=== PATIENT | female | born 1990 | race Caucasian/White ===

== ENCOUNTER 2018-09-24 11:03 | Inpatient (IN) | payer OTHER ==
[2018-09-24] MEDS ORDERED: ELECTROLYTE-148 SOLN 1,000 ML IV SCH (19:45)
--- NOTE | 2018-09-24 19:52 | HP ---
Past Medical History - Admission Chief Complaint: Uterine Contractions History of Present Illness: 28yp [id number] @ 39.1wks here with uterine contractions. No VB/LOF. Pos FM Seen earlier today, cervix was only 2-3cm and no roll changer an hour after monitoring. Preg c/b GBS pos. 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: Alzheimer's, CVA, Dementia, Migraine, Multiple Sclerosis, Peripheral Neuropathy, Parkinson's, Seizure, Syncope, TIA, Vertigo, Other Cardiovascular: No: AFIB, Aneurysm, Aortic Insufficiency, Aortic Stenosis, CAD, CHF, Deep Vein Thrombosis, HTN, Hyperlipdemia, CT, Mitral Insufficiency, Mitral Stenosis, Murmur, Pulmonary Hypertension, Other Gastrointestinal: No: Ascites, Cancer, Constipation, Crohn's Disease, Diverticulitis, Diverticulosis, Esophageal Varices, Gastritis, GERD, GI Bleed, Hemorrhoids, Hiatal Hernia, Inflamatory Bowel Disease, Irritable Bowel Disease, Pancreatitis, Peptic Ulcer Disease, Ulcerative Colitis, Other Hepatobiliary: No: Cirrhosis, Cholelithiasis, Cholecystitis, Choledocholithiasis , Hepatitis A, Hepatitis B, Hepatitis C, Other Renal/: No: Renal Failure, Renal Inusuff, BPH, Cancer, Hematuria, Hemodialysis , Neurogenic Bladder, Renal Calculi, UTI, Other ...: 3 ...Para: 2 ...Term: 2 ...LMP: 12/23/17 ... Weeks Gestation by Dates: 39.1 ...EDC by Dates: 09/30/18 ...EDC by Sono: 09/26/18 Psych: No: Addictions, Anxiety, Bipolar, Depression, Panic, Psychosis, Schizophrenia, Other Musculoskeletal: No: Bursitis, Chronic low back pain, Hemiparesis, Hemiplegia, Osteoarthritis, Paraplegia, Other - Past Surgical History Past Surgical History: Yes: None Hx Myomectomy: No Hx Transabdominal Cerclage: No - Smoking History Smoking history: Never smoked Have you smoked in the past 12 months: No - Alcohol/Substance Use Hx Alcohol Use: No History of Substance Use: reports: None - Social History Usual Living Arrangement: Yes: With Spouse ADL: Independent History of Recent Travel: No Home Medications - Allergies Allergies/Adverse Reactions: Allergies Allergy/AdvReac Type Severity Reaction Status Date / Time No Known Allergies Allergy Verified 09/25/18 00:10 - Home Medications Home Medications: Ambulatory Orders Ibuprofen 600 mg PO Q6H PRN #30 tablet 09/24/18 Prenat 115/Iron Fum/Folic/Dss [ 19 Tablet] 1 tab PO DAILY 09/24/18 Physical Exam - Maternity Vital Signs: Vital Signs Temperature 98.0 F 09/24/18 13:30 Pulse Rate 90 09/24/18 13:30 Respiratory Rate 20 09/24/18 13:30 Blood Pressure 126/74 09/24/18 13:30 O2 Sat by Pulse Oximetry (%) Constitutional: Yes: Well Nourished, No Distress, Calm Eyes: Yes: WNL, Conjunctiva Clear, EOM Intact HENT: Yes: WNL, Atraumatic, Normocephalic Neck: Yes: WNL, Supple, Trachea Midline Cardiovascular: Yes: WNL, Regular Rate and Rhythm, Bradycardia Breast(s): Yes: WNL - Abdominal Exam/OB Number of Fetuses: Single Presentation: Vertex Contractions: Yes Regularity: Regular Intensity: Mod/Strong Monitor Mode: External Accelerations: Non-Uniform Decelerations: None - Vaginal Exam/OB Vaginal Bleediing: No Speculum Exam: No Dilatation (cm): 6-7 Effacement (%): 100 Amniotic Membrane Status: Intact Presentation: Vertex/Position - Physical Exam Edema: No Psychiatric: Yes: Agitated Problem List - Problems (1) Uterine contractions Code(s): [id number] - Assessment/Plan 28yo @ 39.1wks here in labor Admit to L&D Amp for GBS Epidural prn Cat 1 tracing Anticipate ADAM Amor MD
[2018-09-24] MEDS ORDERED: AMPICILLIN - 2 GM in SODIUM CHLORIDE 100 ML IVPB ONE (20:00)
[2018-09-24 20:05] VITALS: BMI 28.0
[2018-09-24 20:41] LABS: BASO % 0.1 % (0-2.0); HEMATOCRIT 36.7 % (32.4-45.2); HEMOGLOBIN 12.2 GM/dL (10.7-15.3); MCH 29.9 pg (25.7-33.7); MCHC 33.3 g/dl (32.0-36.0); MEAN CELL VOLUME 89.7 fl (80-96); MEAN PLT VOLUME 7.6 fl (7.5-11.1); MONO % 3.5 % (3.8-10.2); NEUT % 90.4 % (42.8-82.8); PLATELET COUNT 329 K/MM3 (134-434); RBC 4.09 M/mm3 (3.60-5.2); RDW 14.2 % (11.6-15.6); WHITE BLOOD COUNT 14.3 K/mm3 (4.0-10.0)
[2018-09-24 20:53] LABS: INR 0.98 (0.83-1.09); PROTHROMBIN TIME (PATIENT) 11.6 SEC (9.7-13.0)
[2018-09-24 20:56] LABS: ACTIVATED PTT 29.3 SECONDS (25.2-36.5)
[2018-09-24] MEDS ORDERED: NALOXONE HCL 0.4 MG/ML VIAL IVPUSH PRN (20:56)
[2018-09-24] MEDS ORDERED: FENTANYL/BUPIVACAINE/NS/PF - PCEA - 50 ML DISP.SYRIN EP SCH (21:00)
[2018-09-24 21:20] LABS: ALK PHOS 298 U/L (45-117); ANION GAP 11 MMOL/L (8-16); BILIRUBIN,TOTAL 0.4 mg/dL (0.2-1); BLOOD UREA NITROGEN 7 mg/dL (7-18); CALCIUM 8.9 mg/dL (8.5-10.1); CHLORIDE 102 mmol/L (98-107); CO2 23 mmol/L (21-32); CREATININE 0.5 mg/dL (0.55-1.3); GLUCOSE,RANDOM 89 mg/dL (74-106); POTASSIUM 3.6 mmol/L (3.5-5.1); SGOT/AST 16 U/L (15-37); SGPT/ALT 12 U/L (13-61); SODIUM 136 mmol/L (136-145); TOT PROT 6.8 g/dl (6.4-8.2)
--- NOTE | 2018-09-24 22:33 | PN ---
Progress Note, Labor Vaginal Exam #1 Labor Exam Date: 09/24/18 Labor Exam Time: 22:33 Heart Rate (range): Cat II, tachycardia Dilatation: 10 Effacement (%): 100 Amniotic Membrane Status: Ruptured Presentation: Vertex/Position Station: +1 Remarks: Start pushing Anticipate ADAM Amor MD
[2018-09-24] MEDS ORDERED: WITCH HAZEL 50% (TUCKS) 40 PAD/JAR PAD TP PRN (23:00)
[2018-09-24] MEDS ORDERED: BISACODYL 10 MG SUPP.RECT RC PRN (23:00)
[2018-09-24] MEDS ORDERED: BENZOCAINE 28 GM HEMORRHOIDAL OINTMENT TP PRN (23:00)
[2018-09-24] MEDS ORDERED: METHYLERGONOVINE MALEATE 0.2 MG/1 ML AMP IM PRN (23:00)
[2018-09-24] MEDS ORDERED: BENZOCAINE 20% 57 GM BOTTLE TP PRN (23:00)
[2018-09-24] MEDS ORDERED: ACETAMINOPHEN 325 MG TABLET (FP) PO PRN (23:00)
[2018-09-24] MEDS ORDERED: OXYTOCIN 20 UNITS in 0.9% NS 20 UNIT/1,000 ML INFUS.BAG IV SCH (23:00)
[2018-09-24] MEDS ORDERED: IBUPROFEN 600 MG TABLET (FP) PO PRN (23:00)
--- NOTE | 2018-09-24 23:00 | PN ---
Delivery - Delivery Vaginal Delivery: Spontaneous Type of Anesthesia: Epidural Episiotomy/Laceration: None EBL (cc): 250 Delivery, Single - Stages of Labor Placenta: Yes: Spontaneous - Condition of Real Estate Accountant/Slat Twister Present: No Infant Gender: Male Position: Left, OA - 1 Minute Total Score: 9 5 Minutes Total Score: 9 - [place] Feeding Plan Initial Plan: Elected not to breastfeed exclusively throughout hospitalization Remarks - Remarks Remarks: of VMI from ROSA position over intact perineum. 39 week gestation. Epidural anesthesia. No nuchal. Terminal meconium. Spontaneous delivery of anterior shoulder and remaining body. Cord clamped and cut. Apgars 9/9. Weight pending. Spontaneous delivery of intact placenta with 3VC. Fundus firm. Perineum inspected, no lacerations. EBL 250ml. Mother and baby doing well. Camelia Amor MD
[2018-09-25] MEDS ORDERED: BISACODYL 10 MG SUPP.RECT RC PRN (06:06)
[2018-09-25] MEDS ORDERED: NALOXONE HCL 0.4 MG/ML VIAL IVPUSH PRN (06:06)
[2018-09-25] MEDS ORDERED: METHYLERGONOVINE MALEATE 0.2 MG/1 ML AMP IM PRN (06:06)
[2018-09-25] MEDS ORDERED: BENZOCAINE 28 GM HEMORRHOIDAL OINTMENT TP PRN (06:06)
[2018-09-25] MEDS ORDERED: BENZOCAINE 20% 57 GM BOTTLE TP PRN (06:06)
[2018-09-25] MEDS ORDERED: WITCH HAZEL 50% (TUCKS) 40 PAD/JAR PAD TP PRN (06:07)
[2018-09-25] MEDS ORDERED: ELECTROLYTE-148 SOLN 1,000 ML IV SCH (06:15)
[2018-09-25] MEDS ORDERED: FENTANYL/BUPIVACAINE/NS/PF - PCEA - 50 ML DISP.SYRIN EP SCH (06:15)
[2018-09-25] MEDS ORDERED: OXYTOCIN 20 UNITS in 0.9% NS 20 UNIT/1,000 ML INFUS.BAG IV SCH (06:15)
--- NOTE | 2018-09-25 07:28 | PN ---
Post Progress Note Post Day: 1 Type of Delivery: Vital Signs: Vital Signs Temperature 98.3 F 09/25/18 05:44 Pulse Rate 89 09/25/18 05:44 Respiratory Rate 18 09/25/18 05:44 Blood Pressure 110/71 09/25/18 05:44 O2 Sat by Pulse Oximetry (%) 100 09/24/18 23:10 Uterus: Yes: Fundus below umbilicus Abdomen/GI: Yes: Abdomen soft Lochia: Yes: Rubra Lochia, amount: Small Extremities: Yes: Calves non-tender Perineum: Yes: Intact Activity: Ambulating (Pain controlled. No fevers/chills.) - Labs Labs: CBC WBC 14.3 K/mm3 (4.0-10.0) H 09/24/18 20:00 RBC 4.09 M/mm3 (3.60-5.2) 09/24/18 20:00 Hgb 12.2 GM/dL (10.7-15.3) 09/24/18 20:00 Hct 36.7 % (32.4-45.2) 09/24/18 20:00 MCV 89.7 fl (80-96) 09/24/18 20:00 MCH 29.9 pg (25.7-33.7) 09/24/18 20:00 MCHC 33.3 g/dl (32.0-36.0) 09/24/18 20:00 RDW 14.2 % (11.6-15.6) 09/24/18 20:00 Plt Count 329 K/MM3 (134-434) 09/24/18 20:00 MPV 7.6 fl (7.5-11.1) 09/24/18 20:00 Absolute Neuts (auto) 12.9 K/mm3 (1.5-8.0) H 09/24/18 20:00 Neutrophils % 90.4 % (42.8-82.8) H 09/24/18 20:00 Lymphocytes % 6.0 % (8-40) L 09/24/18 20:00 Monocytes % 3.5 % (3.8-10.2) L 09/24/18 20:00 Eosinophils % 0.0 % (0-4.5) 09/24/18 20:00 Basophils % 0.1 % (0-2.0) 09/24/18 20:00 Nucleated RBC % 0 % (0-0) 09/24/18 20:00 Problem List - Problems (1) Uterine contractions Code(s): [id number] - Assessment/Plan 28yo s/p , PPD#1 Routine PP care OOB, ambulate F/U AM labs Anticipate d/c to home tomorrow, PPD#2 Mayra Amor MD
[2018-09-25 08:35] LABS: BASO % 0.2 % (0-2.0); HEMATOCRIT 33.1 % (32.4-45.2); HEMOGLOBIN 11.3 GM/dL (10.7-15.3); LYMPH % 9.4 % (8-40); MCH 30.4 pg (25.7-33.7); MCHC 34.2 g/dl (32.0-36.0); MEAN CELL VOLUME 88.7 fl (80-96); MEAN PLT VOLUME 7.5 fl (7.5-11.1); MONO % 5.3 % (3.8-10.2); NEUT % 85.1 % (42.8-82.8); PLATELET COUNT 308 K/MM3 (134-434); RBC 3.73 M/mm3 (3.60-5.2); RDW 13.9 % (11.6-15.6); WHITE BLOOD COUNT 17.3 K/mm3 (4.0-10.0)
[2018-09-25] MEDS ORDERED: PRENATAL VITAMINS W/ FOLIC ACID TABLET (FP) PO SCH (10:00)
[2018-09-25] MEDS: PRENATAL VITAMINS W/ FOLIC ACID TABLET (FP) PO SCH (10:00)
[2018-09-25] MEDS: IBUPROFEN 600 MG TABLET (FP) PO PRN (16:59)
[2018-09-25] MEDS: ACETAMINOPHEN 325 MG TABLET (FP) PO PRN (17:01)
[2018-09-25] MEDS ORDERED: SENNOSIDES/DOCUSATE COMBO (SENNA PLUS) TABLET (UD) PO PRN ×2 (22:00)
[2018-09-26] MEDS: ACETAMINOPHEN 325 MG TABLET (FP) PO PRN (04:15)
[2018-09-26] MEDS: IBUPROFEN 600 MG TABLET (FP) PO PRN (04:16)
--- NOTE | 2018-09-26 09:53 | DS ---
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 Vital Signs: Vital Signs Temperature 98 F 09/25/18 22:00 Pulse Rate 89 09/25/18 22:00 Respiratory Rate 18 09/25/18 22:00 Blood Pressure 105/89 09/25/18 22:00 O2 Sat by Pulse Oximetry (%) 100 09/24/18 23:10 Constitutional: Yes: Well Nourished, No Distress, Calm Eyes: Yes: WNL, Conjunctiva Clear, EOM Intact HENT: Yes: WNL, Atraumatic, Normocephalic Neck: Yes: WNL, Supple, Trachea Midline Cardiovascular: Yes: WNL, Regular Rate and Rhythm Respiratory: Yes: WNL, Regular, CTA Bilaterally Gastrointestinal: Yes: WNL ...Rectal Exam: Yes: WNL Renal/: Yes: WNL ....Post : Yes: Uterus firm, Uterus non-tender, Slight lochia rubra Breast(s): Yes: WNL Musculoskeletal: Yes: WNL Extremities: Yes: WNL Edema: No Integumentary: Yes: WNL Neurological: Yes: WNL, Alert, Oriented ...Motor Strength: WNL Psychiatric: Yes: WNL, Alert, Oriented Labs: CBC, BMP 09/25/18 07:40 09/24/18 20:20 Delivery - Delivery Vaginal Delivery: Spontaneous Type of Anesthesia: Epidural Episiotomy/Laceration: None EBL (cc): 250 Delivery, Single - Stages of Labor Date 1st Stage Initiatied: 09/24/18 Time 1st Stage Initiated: 19:00 Date 2nd Stage Initiated: 09/24/18 Time 2nd Stage Initiated: 22:33 Date of Delivery: 09/24/18 Time of Delivery: 22:51 Time Placenta Delivered: 22:55 Placenta: Yes: Spontaneous - Condition of Mount Loader/Small Equipment Operator Present: No Gender: Male Weight: 7 lb 2 oz Position: Left, OA Total Hours ROM (Hrs/Mins): 0H22M - 1 Minute Total Score: 9 5 Minutes Total Score: 9 - [place] Feeding Plan Initial Plan: Elected not to breastfeed exclusively throughout hospitalization Discharge Summary Reason For Visit: ADMIT LABOR Current Active Problems Uterine contractions (Acute) Procedures: Principal: Hospital Course: no complication Condition: Stable - Instructions Referrals: Camelia Amor MD [Staff Physician] - (DISCHARGE HOME; DRINK 6-8 GLASSES OF WATER A DAY; WHEN CONTRACTIONS ARE EVERY 5 MINUTES FOR ONE HOUR, IF YOUR WATER BREAKS, IF YOU EXPERIENCE VAGINAL BLEEDING LIKE A PERIOD OR DECREASED MOVEMENT RETURN TO HOSPITAL; IF NO CHANGE KEEP SCHEDULED CLINIC APPOINTMENT FOR 09/26/18; ANY QUESTIONS/PROBLEMS CALL CLINIC OR LABOR AREA [phone];) Disposition: HOME - Home Medications Comprehensive Discharge Medication List: Ambulatory Orders Ibuprofen 600 mg PO Q6H PRN #30 tablet 09/24/18 Prenat 115/Iron Fum/Folic/Dss [ 19 Tablet] 1 tab PO DAILY 09/24/18
[2018-09-26] MEDS ORDERED: DIPHTH,PERTUSS(ACELL),TET 0.5 ML DISP.SYRIN IM ONE (10:00)
[2018-09-26] MEDS ORDERED: FLU VACCINE QUAD 60 MCG/0.5 ML (MDV 18-19) IM ONE (10:00)
[2018-09-26 10:42] VITALS: BP 100/62; PULSE 72; TEMP 97.9
[2018-09-26] MEDS: PRENATAL VITAMINS W/ FOLIC ACID TABLET (FP) PO SCH (11:46)
== END 2018-09-26 14:05 | disposition home or self-care (01) | DRG 560 ==
LOC: JDEL 11:03 → JLDR 19:35 → J3W 09-25 00:29
PROVIDERS: ADMIT Obstetrics & Gynecology; ATTEND Obstetrics & Gynecology
PROC: 10E0XZZ Delivery of Products of Conception, External Approach (ICD-10-PCS; principal; 2018-09-24)
PROC: 3E0R3GC Introduction of Other Therapeutic Substance into Spinal Canal, Percutaneous Approach (ICD-10-PCS; 2018-09-24)
DX: O99.824 Streptococcus B carrier state complicating childbirth (principal); O77.0 Labor and delivery complicated by meconium in amniotic fluid; Z3A.39 39 weeks gestation of pregnancy; Z37.0 Single live birth
CPT/HCPCS: 36415; 59025; 59409; 80053; 85025; 85610; 85730; 86593; 86850; 86900; 86901; 90686; 90715; G0008